=== PATIENT | male | born 1975 | race Caucasian/White ===

== ENCOUNTER 2018-01-22 18:07 | Emergency (ER) | payer MEDICAID ==
[~2018-01-22] VITALS: Ht 160 cm; Wt 73.9 kg
[2018-01-22 18:26] VITALS: BP 132/76
[2018-01-22] MEDS ORDERED: NACL 0.9% 1,000 ML IV ONE (20:04)
[2018-01-22] MEDS ORDERED: KETOROLAC 30 MG/ML VIAL IVP ONE (20:05)
[2018-01-22] MEDS ORDERED: ONDANSETRON 4 MG/2 ML VIAL IVP ONE (20:05)
[2018-01-22 20:35] LABS: BASOPHILS % (AUTO) 0.4 % (0.0-2.0); EOSINOPHILS # (AUTO) 0.3 K/uL (0-0.4); EOSINOPHILS % (AUTO) 3.3 % (0.0-4.0); HEMATOCRIT 42.5 % (36-52); HEMOGLOBIN 14.6 g/dL (12.0-18.0); LYMPHOCYTES # (AUTO) 1.1 K/uL (2.0-11.5); LYMPHOCYTES % (AUTO) 12.2 % (20.5-51.1); MEAN CORPUSCULAR HEMOGLOBIN 31 pg (27-31); MEAN CORPUSCULAR HGB CONC 34 g/dL (33-37); MEAN CORPUSCULAR VOLUME 89.6 fL (80-94); MONOCYTES # (AUTO) 0.7 K/uL (0.8-1.0); MONOCYTES % (AUTO) 7.4 % (1.7-9.3); NEUTROPHILS % (AUTO) 76.7 % (42.2-75.2); PLATELET COUNT (AUTO) 150 K/uL (140-450); RED BLOOD CELL COUNT(AUTO) 4.74 MIL/uL (4.20-6.10); RED CELL DISTRIBUTION WIDTH 13.7 % (11.6-13.7); WHITE BLOOD COUNT (AUTO) 9.1 K/uL (4.8-10.8)
[2018-01-22 20:36] LABS: APPEARANCE,URINE CLEAR (CLEAR); BILIRUBIN,URINE NEGATIVE (NEGATIVE); BLOOD, URINE NEGATIVE (NEGATIVE); COLOR,URINE YELLOW (YELLOW); LEUKOCYTE ESTERASE ,URINE NEGATIVE (NEGATIVE); NITRITE, URINE NEGATIVE (NEGATIVE); UGLUCOSE NEGATIVE (NEGATIVE)
[2018-01-22 21:02] LABS: ALBUMIN 4.1 g/dL (3.4-5.0); CARBON DIOXIDE 29.3 mmol/L (21-32); CREATININE 1.1 mg/dL (0.7-1.3); POTASSIUM 4.3 mmol/L (3.5-5.1); TOTAL BILIRUBIN 0.7 mg/dL (0.0-1.0)
[2018-01-22 22:09] VITALS: BP 128/76
== END 2018-01-22 22:10 | disposition home or self-care (01) ==
LOC: MED 18:07
DX: J20.9 Acute bronchitis, unspecified (principal); J06.9 Acute upper respiratory infection, unspecified; R11.2 Nausea with vomiting, unspecified
CPT/HCPCS: 36415; 70450; 71045; 80053; 81003; 83605; 83690; 84484; 85025; 87040; 87086; 93005; 96361; 96374; 96375; 99285; J1885; J2405; J7030; Q0092

== ENCOUNTER 2018-03-21 17:13 | Emergency (ER) | payer SELFPAY ==
[~2018-03-21] VITALS: Ht 154.9 cm; Wt 63.0 kg
[2018-03-21 17:24] VITALS: BP 112/74
[2018-03-21] MEDS ORDERED: KETOROLAC 60 MG/2 ML VIAL IM ONE (18:10)
[2018-03-21 18:54] LABS: BASOPHILS # (AUTO) 0.1 K/uL (0.00-0.22); BASOPHILS % (AUTO) 1.6 % (0.0-2.0); EOSINOPHILS # (AUTO) 0.2 K/uL (0-0.4); EOSINOPHILS % (AUTO) 4.6 % (0.0-4.0); HEMATOCRIT 44.5 % (36-52); HEMOGLOBIN 15.2 g/dL (12.0-18.0); LYMPHOCYTES # (AUTO) 1.3 K/uL (2.0-11.5); LYMPHOCYTES % (AUTO) 26.2 % (20.5-51.1); MEAN CORPUSCULAR HEMOGLOBIN 30 pg (27-31); MEAN CORPUSCULAR HGB CONC 34 g/dL (33-37); MEAN CORPUSCULAR VOLUME 88.7 fL (80-94); MONOCYTES # (AUTO) 0.3 K/uL (0.8-1.0); MONOCYTES % (AUTO) 7.2 % (1.7-9.3); NEUTROPHILS # (AUTO) 2.9 K/uL (1.8-7.7); NEUTROPHILS % (AUTO) 60.4 % (42.2-75.2); PLATELET COUNT (AUTO) 144 K/uL (140-450); RED BLOOD CELL COUNT(AUTO) 5.01 MIL/uL (4.20-6.10); RED CELL DISTRIBUTION WIDTH 13.7 % (11.6-13.7); WHITE BLOOD COUNT (AUTO) 4.8 K/uL (4.8-10.8)
[2018-03-21 19:11] LABS: ALBUMIN 3.7 g/dL (3.4-5.0); CARBON DIOXIDE 25.5 mmol/L (21-32); CREATININE 0.8 mg/dL (0.7-1.3); POTASSIUM 3.5 mmol/L (3.5-5.1); TOTAL BILIRUBIN 0.4 mg/dL (0.0-1.0)
[2018-03-21] MEDS ORDERED: MORPHINE SULFATE 4 MG/ML SYR IM ONE (19:55)
[2018-03-21 21:20] VITALS: BP 119/75
== END 2018-03-21 21:20 | disposition home or self-care (01) ==
LOC: MED 17:13
DX: R10.33 Periumbilical pain (principal)
CPT/HCPCS: 36415; 74022; 80053; 83690; 85025; 96372; 99285; J1885; J2270

== ENCOUNTER 2018-12-06 14:02 | Emergency (ER) | payer SELFPAY ==
[~2018-12-06] VITALS: Ht 165.1 cm; Wt 76.2 kg
[2018-12-06 14:37] VITALS: BP 124/68
--- NOTE | 2018-12-06 15:35 | NUR ---
PT TO ER BED 10
--- NOTE | 2018-12-06 16:07 | NUR ---
PER PATIENT'S SPOUSE, PT. C/O ABDOMINAL INTERMITTENT, SHARP PAIN OF 10/10 WITH NAUSEA AND VOMITING SINCE LAST NIGHT. HE STATES THAT IT FEELS LIKE "NEEDLES" . PATIENT HAS HERNIAL PAIN THAT STARTED ONE MONTH AGO AND HAS GOTTEN WORSE SINCE LAST NIGHT. HE ALSO NOTES DIZZINESS. PT. IS A/O X4. BOWEL SOUNDS ACTIVE ON ALL QUADRANTS. ABDOMEN IS DISTENDED AND TENDER TO TOUCH. HX:UMBILICAL HERNIA RX:NONE
[2018-12-06 17:10] VITALS: BP 108/68
--- NOTE | 2018-12-06 17:12 | NUR ---
Patient discharged with v/s stable. Written and verbal after care instructions given and explained. Patient alert, oriented and verbalized understanding of instructions. Ambulatory with steady gait. All questions addressed prior to discharge. ID band removed. Patient advised to follow up with PMD. Rx of OMEPRAZOLE 40MG given. Patient educated on indication of medication including possible reaction and side effects. Opportunity to ask questions provided and answered.
== END 2018-12-06 17:10 | disposition home or self-care (01) ==
LOC: MED 14:02
DX: K29.70 Gastritis, unspecified, without bleeding (principal); K56.7 Ileus, unspecified
CPT/HCPCS: 74018; 99283; Q0092